=== PATIENT | female | born 2000 | race American Indian/Alaskan Native ===

== ENCOUNTER 2018-08-16 19:15 | Emergency (ER) | payer MEDICAID, OTHER ==
[2018-08-16 21:04] LABS: Basophils % (Auto) 0.7 % (0.0-1.8); Eosinophils # (Auto) 0.1 K/mm3 (0.0-0.4); Eosinophils % (Auto) 1.3 % (0.0-4.3); Hematocrit 39.5 % (30.3-42.9); Hemoglobin 13.2 gm/dl (10.1-14.3); Lymphocytes # (Auto) 1.7 K/mm3 (1.2-5.4); Lymphocytes % (Auto) 35.7 % (13.4-35.0); Mean Corpuscular HGB Conc 34 % (30-34); Mean Corpuscular Hemoglobin 29 pg (28-32); Mean Corpuscular Volume 85 fl (79-97); Monocytes # (Auto) 0.5 K/mm3 (0.0-0.8); Monocytes % (Auto) 11.1 % (0.0-7.3); Platelet Count 281 K/mm3 (140-440); Red Blood Count 4.65 M/mm3 (3.65-5.03); Red Cell Distribution Width 13.9 % (13.2-15.2)
[2018-08-16] MEDS ORDERED: HALDOL IM PRN (21:06)
[2018-08-16] MEDS ORDERED: ATIVAN IM PRN (21:06)
--- NOTE | 2018-08-16 21:07 | Emergency Department Report ---
ED General Adult HPI - General Chief complaint: Psych Stated complaint: CONFUSION/DEPRESSION Time Seen by Provider: 08/16/18 20:45 Source: patient, RN notes reviewed Mode of arrival: Ambulatory Limitations: No Limitations - History of Present Illness Initial comments: This is a 18-year-old female who is not known to this provider previously. Patient denies chronic medical conditions. Presents to the ER with complaint of depression, has endorsed suicidality, and also endorses depression. The patient denies headache, neck pain, chest pain, abdominal pain, shortness of breath. She denies homicidality, and access to guns and firearms. She denies attempt to overdose. She will not describe exacerbating or relieving factors. -: Gradual Consistency: constant Improves with: none Worsens with: none Associated Symptoms: denies other symptoms, malaise, other (hallucinations, suicidality). denies: confusion, chest pain, cough, diaphoresis, fever/chills, headaches, loss of appetite, nausea/vomiting, rash, seizure, shortness of breath , syncope, weakness - Related Data Home Medications Medication Instructions Recorded Confirmed Last Taken No Known Home Medications [No 08/16/18 08/16/18 Unknown Reported Home Medications] Allergies Allergy/AdvReac Type Severity Reaction Status Date / Time peanut Allergy Unknown Verified 08/16/18 20:08 ED Review of Systems ROS: Stated complaint: CONFUSION/DEPRESSION Other details as noted in HPI Comment: All other systems reviewed and negative Psychiatric: anxiety, depression, auditory hallucinations, suicidal thoughts. denies: homicidal thoughts ED Past Medical Hx - Past Medical History Previous Medical History?: No - Surgical History Past Surgical History?: No - Social History Smoking Status: Never Smoker Substance Use Type: None - Medications Home Medications: Home Medications Medication Instructions Recorded Confirmed Last Taken Type No Known Home Medications [No 08/16/18 08/16/18 Unknown History Reported Home Medications] ED Physical Exam - General Limitations: No Limitations General appearance: alert, anxious - Head Head exam: Present: atraumatic, normocephalic - Eye Eye exam: Present: normal appearance, EOMI. Absent: nystagmus - ENT ENT exam: Present: normal exam, normal orophraynx, mucous membranes moist, normal external ear exam - Neck Neck exam: Present: normal inspection, full ROM. Absent: tenderness, meningismus - Respiratory Respiratory exam: Present: normal lung sounds bilaterally. Absent: respiratory distress - Cardiovascular Cardiovascular Exam: Present: regular rate, normal rhythm, normal heart sounds. Absent: bradycardia, tachycardia, irregular rhythm, systolic murmur, diastolic murmur, rubs, gallop - GI/Abdominal GI/Abdominal exam: Present: soft, normal bowel sounds. Absent: distended, tenderness, guarding, rebound, rigid, pulsatile mass - Extremities Exam Extremities exam: Present: normal inspection, full ROM, normal capillary refill , other (2+ pulses noted in the bilateral upper, lower extremities. Compartments soft. No long bony tenderness. The pelvis is stable.). Absent: tenderness, pedal edema, joint swelling, calf tenderness - Back Exam Back exam: Present: normal inspection, full ROM. Absent: tenderness, CVA tenderness (R), paraspinal tenderness, vertebral tenderness - Neurological Exam Neurological exam: Present: alert (alert to name, place, location, month. Able to recall 3 out of 3 words at 0, and time 5 minutes. Able to add, subtract, multiply, divide and spell), oriented X3, CN II-XII intact, normal gait, other ( Extraocular movements intact. Tongue midline. No facial droop. Facial sensation intact to light touch in the V1, V2, V3 distribution bilaterally. 5 and 5 strength in 4 extremities.. Sensation is intact to light touch in 4 extremities.). Absent: motor sensory deficit - Psychiatric Psychiatric exam: Present: anxious - Skin Skin exam: Present: warm, dry, intact, normal color. Absent: rash ED Course Vital Signs 08/16/18 20:02 Temperature 98.7 F Pulse Rate 78 Respiratory 18 Rate Blood Pressure 123/56 O2 Sat by Pulse 100 Oximetry - Reevaluation(s) Reevaluation #1: 08/16/18 21:45 Differential diagnosis, including not limited to: Psychosis, depression, mood disorder, medical clearance for psychiatric placement Assessment and plan: 18-year-old female with depression and suicidality as well as hallucinations. She is afebrile with reassuring vital signs and is clinically sober at this time. There is no neck pain or neck stiffness, and the patient has a normal neurologic examination, and is able to recall 3 out of 3 words, as well as add, subtract, multiply, divide and spell. My clinical opinion she is not altered. My clinical opinion she has depression with psychotic features. Patient requires 1013 at this time. Laboratory studies pending. Noncontrast CT scan of the brain is pending. Reevaluation #2: 08/16/18 23:[address] scan of the brain is negative. Laboratory studies are reviewed and are essentially unremarkable. At this point in time, digits and appeared to be an immediate medical contraindication to psychiatric admission, evaluation , consultation. We have placed a page out to the psychiatry team to evaluate the patient. ED Medical Decision Making - Lab Data Result diagrams: 08/16/18 20:50 08/16/18 20:50 Vital Signs 08/16/18 20:02 Temperature 98.7 F Pulse Rate 78 Respiratory 18 Rate Blood Pressure 123/56 O2 Sat by Pulse 100 Oximetry Lab Results 08/16/18 08/16/18 08/16/18 Range/Units 20:50 20:50 20:50 WBC 4.9 (4.5-11.0) K/mm3 RBC 4.65 (3.65-5.03) M/mm3 Hgb 13.2 (10.1-14.3) gm/dl Hct 39.5 (30.3-42.9) % MCV 85 (79-97) fl MCH 29 (28-32) pg MCHC 34 (30-34) % RDW 13.9 (13.2-15.2) % Plt Count 281 (140-440) K/mm3 Lymph % (Auto) 35.7 H (13.4-35.0) % [place] % (Auto) 11.1 H (0.0-7.3) % Eos % (Auto) 1.3 (0.0-4.3) % Baso % (Auto) 0.7 (0.0-1.8) % Lymph # 1.7 (1.2-5.4) K/mm3 [place] # 0.5 (0.0-0.8) K/mm3 Eos # 0.1 (0.0-0.4) K/mm3 Baso # 0.0 (0.0-0.1) K/mm3 Seg Neutrophils % 51.2 (40.0-70.0) % Seg Neutrophils # 2.5 (1.8-7.7) K/mm3 Sodium 138 (137-145) mmol/L Potassium 3.4 L (3.6-5.0) mmol/L Chloride 100.3 (98-107) mmol/L Carbon Dioxide 23 (22-30) mmol/L Anion Gap 18 mmol/L BUN 8 (7-17) mg/dL Creatinine 0.8 (0.7-1.2) mg/dL Estimated GFR > 60 ml/min BUN/Creatinine Ratio 10 % Glucose 93 (65-100) mg/dL Calcium 9.8 (8.4-10.2) mg/dL Urine Color (Yellow) Urine Turbidity (Clear) Urine pH (5.0-7.0) Ur Specific [place] (1.003-1.030) Urine Protein (Negative) mg/dL Urine Glucose (UA) (Negative) mg/dL Urine Ketones (Negative) mg/dL Urine Blood (Negative) Urine Nitrite (Negative) Urine Bilirubin (Negative) Urine Urobilinogen (<2.0) mg/dL Ur Leukocyte Esterase (Negative) Urine WBC (Auto) (0.0-6.0) /HPF Urine RBC (Auto) (0.0-6.0) /HPF U Epithel Cells (Auto) (0-13.0) /HPF Urine Mucus /HPF Urine Opiates Screen Urine Methadone Screen Ur Barbiturates Screen Ur Phencyclidine Scrn Ur Amphetamines Screen U Benzodiazepines Scrn Urine Cocaine Screen U Marijuana (THC) Screen Drugs of Abuse Note Plasma/Serum Alcohol < 0.01 (0-0.07) % 08/16/18 08/16/18 Range/Units 20:51 20:51 WBC (4.5-11.0) K/mm3 RBC (3.65-5.03) M/mm3 Hgb (10.1-14.3) gm/dl Hct (30.3-42.9) % MCV (79-97) fl MCH (28-32) pg MCHC (30-34) % RDW (13.2-15.2) % Plt Count (140-440) K/mm3 Lymph % (Auto) (13.4-35.0) % [place] % (Auto) (0.0-7.3) % Eos % (Auto) (0.0-4.3) % Baso % (Auto) (0.0-1.8) % Lymph # (1.2-5.4) K/mm3 [place] # (0.0-0.8) K/mm3 Eos # (0.0-0.4) K/mm3 Baso # (0.0-0.1) K/mm3 Seg Neutrophils % (40.0-70.0) % Seg Neutrophils # (1.8-7.7) K/mm3 Sodium (137-145) mmol/L Potassium (3.6-5.0) mmol/L Chloride (98-107) mmol/L Carbon Dioxide (22-30) mmol/L Anion Gap mmol/L BUN (7-17) mg/dL Creatinine (0.7-1.2) mg/dL Estimated GFR ml/min BUN/Creatinine Ratio % Glucose (65-100) mg/dL Calcium (8.4-10.2) mg/dL Urine Color Yellow (Yellow) Urine Turbidity Clear (Clear) Urine pH 6.0 (5.0-7.0) Ur Specific [place] 1.023 (1.003-1.030) Urine Protein <15 mg/dl (Negative) mg/dL Urine Glucose (UA) Neg (Negative) mg/dL Urine Ketones 20 (Negative) mg/dL Urine Blood Neg (Negative) Urine Nitrite Neg (Negative) Urine Bilirubin Neg (Negative) Urine Urobilinogen 2.0 (<2.0) mg/dL Ur Leukocyte Esterase Neg (Negative) Urine WBC (Auto) 1.0 (0.0-6.0) /HPF Urine RBC (Auto) 4.0 (0.0-6.0) /HPF U Epithel Cells (Auto) 4.0 (0-13.0) /HPF Urine Mucus 3+ /HPF Urine Opiates Screen Presumptive negative Urine Methadone Screen Presumptive negative Ur Barbiturates Screen Presumptive negative Ur Phencyclidine Scrn Presumptive negative Ur Amphetamines Screen Presumptive negative U Benzodiazepines Scrn Presumptive negative Urine Cocaine Screen Presumptive negative U Marijuana (THC) Screen Presumptive negative Drugs of Abuse Note Disclamer Plasma/Serum Alcohol (0-0.07) % Critical care attestation.: If time is entered above; I have spent that time in minutes in the direct care of this critically ill patient, excluding procedure time. ED Disposition Clinical Impression: Medical clearance for psychiatric admission Disposition: [id number]/[id number] PSY HOSP/PSY UNIT Is pt being admited?: No Does the pt Need Aspirin: No Condition: Good Referrals: PRIMARY CARE, [Primary Care Provider] - 3-5 Days
[2018-08-16 21:16] LABS: Bilirubin,Urine NEG (Negative); Blood,Urine NEG (Negative); Color,Urine Yellow (Yellow); Mucus,Urine 3+ /HPF; Protein,Urine <15 mg/dL mg/dL (Negative)
[2018-08-16 21:18] LABS: Amphetamine Screen,Urine PRESUMPTIVE NEGATIVE; Benzodiazepines Screen,Urine PRESUMPTIVE NEGATIVE; Cannabinoid Screen,Urine PRESUMPTIVE NEGATIVE; Cocaine Screen,Urine PRESUMPTIVE NEGATIVE; Methadone Screen,Urine PRESUMPTIVE NEGATIVE; Opiate Screen,Urine PRESUMPTIVE NEGATIVE
[2018-08-16 21:28] LABS: BUN/Creatinine Ratio 10; Blood Urea Nitrogen 8 mg/dL (7-17); Calcium 9.8 mg/dL (8.4-10.2); Hemolysis Index 6
[2018-08-16] MEDS ORDERED: K-DUR PO ONE (21:46)
--- NOTE | 2018-08-16 23:35 | Cat Scan Report ---
FINAL REPORT EXAM: CT HEAD/BRAIN WO CON HISTORY: hallucinations, disorganized behavior TECHNIQUE: CT head without contrast PRIORS: None. FINDINGS: No acute intra-axial or extra-axial hemorrhage is identified. There is no evidence of midline shift or mass effect. The ventricles and sulci are within normal limits. Dickerson-white matter differentiation is intact. No acute parenchymal abnormalities seen. Bony calvarium is grossly intact. Visualized portions of the mastoids and paranasal sinuses are unremarkable. IMPRESSION: Negative CT head
--- NOTE | 2018-08-17 12:01 | Consultation ---
History of Present Illness - Reason for Consult Consult date: 08/17/18 Reason for consult: Mental Health Evauation Requesting physician: FERNANDO DONNELLY - Chief Complaint Chief complaint: "I have no interest in anything" - History of Present Psychiatric Illness 18 y.o. AA female presenting to the ER for unspecified mood do and SI's. Today the patient is calm, but withdrawn during the assessment. The patient presents with avolition symptoms stating, "I don't wan do anything with myself." She could not explain why she feels this way. She would not confirm or deny being suicidal, but acknowledged a previous suicide attempt. She stated that she has been experiencing AH's, but cannot say what the voices are saying. She stated that the voices have been active for several days. The patient pauses several times throughout the interview, possibly responding to some type of stimuli. She denies Hi's and VH's. She denies any manic episodes in the past. She stated that her sleep has been erratic lately, with an okay appetite. She denies recreational drug use. Medications and Allergies Allergies Allergy/AdvReac Type Severity Reaction Status Date / Time peanut Allergy Unknown Verified 08/16/18 20:08 Home Medications Medication Instructions Recorded Confirmed Last Taken Type No Known Home Medications [No 08/16/18 08/16/18 Unknown History Reported Home Medications] Active Meds: Active Medications Haloperidol Lactate (Haldol) 5 mg IM Q6HR PRN PRN Reason: Agitation Lorazepam (Ativan) 2 mg IM Q4HR PRN PRN Reason: Agitation Past psychiatric history - Past Medical History Past Medical History: No medical history Past Surgical History: No surgical history - past Psychiatric treatment and history psychiatric treatment history: Would not confirm or deny a psy hx and fam psy hx. - Social History Social history: lives with family Mental Status Exam - Vital signs Last Vital Signs Temp 98.6 F 08/17/18 09:06 Pulse 86 08/17/18 09:06 Resp 18 08/17/18 10:15 BP 112/65 08/17/18 09:06 Pulse Ox 97 08/17/18 10:15 - Exam Narrative exam: MSE: Appearance: calm, cooperative Behavior: regular eye contact Speech: regular rate and low tone Mood: "depressed" Affect: flat Thought Process: circumstantial Thought Content: denies HI's and VH's Motor Activity: sitting up in the bed Cognition: A/O x3 Insight: poor Judgment: poor Results Result Diagrams: 08/16/18 20:50 08/16/18 20:50 Abnormal lab results 08/16/18 08/16/18 08/16/18 Range/Units 20:50 20:50 20:50 Lymph % (Auto) (13.4-35.0) % [place] % (Auto) (0.0-7.3) % Potassium 3.4 L (3.6-5.0) mmol/L Total Creatine Kinase (30-135) units/L Salicylates < 0.3 L (2.8-20.0) mg/dL Acetaminophen < 5.0 L (10.0-30.0) ug/mL 08/16/18 08/16/18 Range/Units 20:50 21:12 Lymph % (Auto) 35.7 H (13.4-35.0) % [place] % (Auto) 11.1 H (0.0-7.3) % Potassium (3.6-5.0) mmol/L Total Creatine Kinase 658 H (30-135) units/L Salicylates (2.8-20.0) mg/dL Acetaminophen (10.0-30.0) ug/mL All other labs normal. Assessment and Plan Assessment and plan: Impression: Unspecified Mood DO with psy features. Today the patient is calm, but withdrawn during the assessment. UDS is negative. DDx: R/O Bipolar DO, MDD with psychosis Recommendation/Plan: Continue 1013. Start Seroquel 100 mg PO HS for mood/ psychosis. Discussed possible metabolic side effects of Seroquel with the patient. Dispo: The patient was referred to inpatient psy services. Staffed with Dr Lehman.
[2018-08-18 10:33] LABS: Albumin 4.4 g/dL (3.9-5); BUN/Creatinine Ratio 17; Blood Urea Nitrogen 10 mg/dL (7-17); Calcium 9.4 mg/dL (8.4-10.2); Hemolysis Index 35
[2018-08-18 10:34] LABS: Alanine Aminotransferase < 5 units/L (7-56)
--- NOTE | 2018-08-18 13:13 | Progress Note ---
Subjective - Reason for Consult Consult date: 08/18/18 Reason for consult: Psychiatry Follow-up - Chief Complaint Chief complaint: "I am okay" 18 y.o. AA female presenting to the ER for unspecified mood do and SI's. Today the patient is calm, but still withdrawn during the assessment. The patient paused frequently when asked questions throughout the interview, possibly responding to some type of stimuli. She would not confirm or deny SI's. She stated that she is hearing voices sometimes, but could not elaborate on what the voices are saying. She denies HI's and VH's. She denies any side effects of her medication. Mental Status Exam - Vital signs Last Vital Signs Temp 97.4 F L 08/18/18 06:03 Pulse 90 08/18/18 06:03 Resp 18 08/18/18 06:03 BP 119/61 08/18/18 06:03 Pulse Ox 98 08/18/18 06:03 - Exam Narrative exam: MSE: Appearance: calm, cooperative Behavior: regular eye contact Speech: regular rate and low tone Mood: "depressed" Affect: flat Thought Process: circumstantial Thought Content: denies HI's and VH's, paranoid Motor Activity: sitting up in the bed Cognition: A/O x3 Insight: poor Judgment: poor Assessment and Plan Impression: Unspecified Mood DO with psy features. Today the patient is calm, but still withdrawn during the assessment. UDS is negative. The patient is experiences perceptual disturbances. DDx: R/O Bipolar DO, MDD with psychosis Recommendation/Plan: Continue 1013. Start Seroquel 100 mg PO HS for mood/ psychosis. Discussed possible metabolic side effects of Seroquel with the patient. Dispo: The patient was referred to inpatient psy services. Will staff with Dr Lehman.
[2018-08-19 14:20] VITALS: BP 138/72
== END 2018-08-19 17:24 ==
LOC: EEVIPCON 19:15 → ED 19:15
DX: F32.9 Major depressive disorder, single episode, unspecified (principal); F41.9 Anxiety disorder, unspecified; Z91.010 Allergy to peanuts
CPT/HCPCS: 36415; 70450; 80048; 80053; 80307; 81001; 82550; 84443; 84702; 85025; 99285; G0480; 80320